=== PATIENT | female | born 1940 | race Caucasian/White ===

== ENCOUNTER 2017-02-13 14:38 | Emergency (ER) | payer OTHER ==
[~2017-02-13 14:38] MED LIST: ATARAX,VISTARIL50 MG PO; ATIVAN0.5 MG PO; ATIVAN1 MG PO; CENTRUM MULTIV1 EACH PO; FLEXERIL5 MG PO; FLOMAX0.4 MG PO; HYDROCODONE BIT1 T11 PO; Lidex 0.05% Cre15 GM T; MEDROL DOSEPAK4 MG PO; MULTI VITAMINS1 TAB PO; PREDNICOT20 MG PO; Percocet 325 MG1 TAB PO; SIMVASTATIN40 MG PO; VIBRAMYCIN100 MG PO; VICODIN 5/500 505 MG PO; VISTARIL25 M1 PO; [UNRECOGNIZED DRUG - OTHER] PO
[2017-02-13] MEDS ORDERED: HYCODAN/HYDROMET5 ML PO (15:16)
[2017-02-13] MEDS ORDERED: FLONASE ALLERG9.9 ML NAS (15:16)
[2017-02-13] MEDS ORDERED: VIBRAMYCIN100 MG PO (15:16)
== END 2017-02-13 17:11 | disposition home or self-care (01) ==
LOC: ED 14:38
DX: R91.8 Other nonspecific abnormal finding of lung field (principal); J32.9 Chronic sinusitis, unspecified; Z88.8 Allergy status to other drugs, medicaments and biological substances; Z79.899 Other long term (current) drug therapy

== ENCOUNTER → 2017-03-24 | Outpatient (CLI) | payer OTHER ==
[~2017-03-24] MED LIST changes: +FLONASE ALLERG9.9 ML NAS; +HYCODAN/HYDROMET5 ML PO
== END | disposition home or self-care (01) ==
LOC: US 13:00 → LAB 13:09
DX: R91.8 Other nonspecific abnormal finding of lung field (principal); R63.4 Abnormal weight loss; R05 Cough; R09.89 Other specified symptoms and signs involving the circulatory and respiratory systems; I25.10 Atherosclerotic heart disease of native coronary artery without angina pectoris

== ENCOUNTER 2017-08-16 18:50 | Emergency (ER) | payer OTHER ==
[~2017-08-16] VITALS: Wt 53.1 kg
[2017-08-16 19:29] LABS: BILIRUBIN NEGATIVE (NEGATIVE); BLOOD NEGATIVE (NEGATIVE); CLARITY SL CLOUDY (CLEAR); COLOR YELLOW (YELLOW); GLUCOSE NEGATIVE (NEGATIVE); KETONE NEGATIVE (NEGATIVE); LEUKO ESTERASE NEGATIVE (NEGATIVE); NITRITE NEGATIVE (NEGATIVE); PH 6.5 (5.0-9.0); UROBILINOGEN 0.2 E.U./dl (0.2-1.0)
[2017-08-16 19:37] LABS: BACTERIA TRACE; EPITHELIAL CELLS 45-50
[2017-08-16] MEDS ORDERED: DELTASONE20 M1 PO (20:22)
[2017-08-16] MEDS ORDERED: NORCO 5-325 TA1 EACH PO (20:22)
== END 2017-08-16 20:31 | disposition home or self-care (01) ==
LOC: ED 18:50
PROVIDERS: Physician Assistant
DX: R07.81 Pleurodynia (principal); Z88.8 Allergy status to other drugs, medicaments and biological substances

== ENCOUNTER → 2017-08-27 | Outpatient (CLI) | payer OTHER ==
[~2017-08-27] MED LIST changes: +DELTASONE20 M1 PO; +NORCO 5-325 TA1 EACH PO
--- NOTE | ~2017-08-27 | EKG ---
[place], [place] ELECTROCARDIOGRAM REPORT NAME: TADEO WARNER UNIT #: [id number] ROOM: DOCTOR: ARIELA MARTÍNEZ MD BIRTHDATE: [birth year] DOS: 08/27/2017 TIME: 1257 hours. Normal sinus rhythm with 65 beats per minute. Tracing is normal. No previous tracing is available for comparison. ARIELA MARTÍNEZ MD CM:EKGRPT:ELECTROCARDIOGRAM REPORT [id number] ARIELA MARTÍNEZ MD
[2017-08-27 13:37] LABS: ALBUMIN 3.2 gm/dl (3.1-4.5); ALKALINE PHOSPHATASE 86 U/L (45-117); BUN 17 mg/dl (7-24); CHLORIDE 104 mmol/L (98-107); CREATININE 1.04 mg/dL (0.55-1.02); SGOT/AST 13 IU/L (3-35); SGPT/ALT 13 U/L (12-78); SODIUM 139 mmol/L (136-145); TOTAL PROTEIN 7.8 gm/dL (6.4-8.2)
[2017-08-27 13:46] LABS: HEMATOCRIT 35.1 % (37.0-47.0); HEMOGLOBIN 10.9 g/dl (12.0-16.0); MEAN CELL VOLUME 88.6 fl (81.0-99.0); MEAN CORPUSCULAR HGB 27.5 pg (27.0-31.0); MEAN CORPUSCULAR HGB CONC 31.1 g/dl (33.0-37.0); MEAN PLATELET VOLUME 10.5 fl (9.6-12.3); PLATELET COUNT AUTOMATED 418 10*3/uL (130-400); RED BLOOD COUNT 3.96 10*6/uL (4.10-5.10); RED CELL DISTRI WIDTH 17.6 % (0-14.5); WHITE BLOOD COUNT 20.6 10*3/uL (4.8-10.8)
[2017-08-27 13:54] LABS: ACT PARTIAL THROMBO TIME 23.9 SECONDS (20.8-31.5); INTERNATIONAL NORM RATIO 0.9 (2.0-3.5)
[2017-08-27 14:06] LABS: PLATELET SUFFICIENCY HIGH (NORMAL); TOTAL CELLS COUNTED 100 #CELLS
== END | disposition home or self-care (01) ==
LOC: LAB 12:18
PROVIDERS: Internal Medicine Pulmonary Disease
DX: R91.8 Other nonspecific abnormal finding of lung field (principal); R07.89 Other chest pain

== ENCOUNTER 2019-10-11 15:42 | Emergency (ER) | payer OTHER ==
[~2019-10-11] VITALS: Ht 149.8 cm; Wt 48.5 kg
[2019-10-11 17:09] LABS: BASO % 0.2 % (0.0-1.0); HEMATOCRIT 28.8 % (37.0-47.0); LYMPH # 1.5 10*3/uL (1.3-4.4); LYMPH % 8.6 % (27.0-41.0); MEAN CELL VOLUME 86.7 fl (81.0-99.0); MEAN CORPUSCULAR HGB 25.3 pg (27.0-31.0); MEAN CORPUSCULAR HGB CONC 29.2 g/dl (33.0-37.0); MEAN PLATELET VOLUME 8.9 fl (9.6-12.3); MONO % 5.7 % (3.0-9.0); NEUT # 15.1 10*3/uL (2.3-7.9); NEUT % 84.5 % (47.0-73.0); PLATELET COUNT AUTOMATED 739 10*3/uL (130-400); RED BLOOD COUNT 3.32 10*6/uL (4.10-5.10); RED CELL DISTRI WIDTH 24.7 % (0-14.5); WHITE BLOOD COUNT 17.9 10*3/uL (4.8-10.8)
[2019-10-11 17:25] LABS: ALBUMIN 2.5 gm/dl (3.1-4.5); ALKALINE PHOSPHATASE 107 U/L (45-117); BUN 21 mg/dl (7-24); CHLORIDE 107 mmol/L (98-107); CREATININE 0.84 mg/dL (0.55-1.02); LIPASE 141 U/L (73-393); POTASSIUM 3.8 mmol/L (3.5-5.1); SGOT/AST 20 IU/L (3-35); SGPT/ALT 13 U/L (12-78); SODIUM 139 mmol/L (136-145); TOTAL PROTEIN 7.8 gm/dL (6.4-8.2)
[2019-10-11 17:28] LABS: ACT PARTIAL THROMBO TIME 27.1 SECONDS (20.0-32.1)
[2019-10-11 17:34] LABS: TROPONIN I < 0.015 ng/ml (<0.045)
== END 2019-10-11 20:59 | disposition home or self-care (01) ==
LOC: ED 15:42
PROVIDERS: Nurse Practitioner Family
DX: K21.9 Gastro-esophageal reflux disease without esophagitis (principal); Z90.49 Acquired absence of other specified parts of digestive tract; Z98.51 Tubal ligation status; Z90.710 Acquired absence of both cervix and uterus; Z79.899 Other long term (current) drug therapy; Z88.6 Allergy status to analgesic agent